=== PATIENT | male | born 1995 | race Caucasian/White ===

== ENCOUNTER 2018-03-26 12:36 | Emergency (ER) | payer OTHER ==
[2018-03-26 12:42] VITALS: RESP 18
--- NOTE | 2018-03-26 13:31 | XR ---
EXAMINATION TYPE: XR knee complete LT DATE OF EXAM: 03/26/2018 COMPARISON: NONE HISTORY: Pain TECHNIQUE: 3 views are submitted. FINDINGS: There is a intra-articular tibial plateau fracture extending in the proximal diaphysis of the tibia p osteriorly. There is displacement. There is a large suprapatellar bursal fluid collection. Remaining osseous structures intact. IMPRESSION: 1. Comminuted intra-articular tibial plateau fracture greater laterally with extension into the proxi mal diaphysis.
--- NOTE | 2018-03-26 14:23 | ED ---
General Adult HPI - General Chief complaint: Fall Stated complaint: [facility] Fell off ladder Time Seen by Provider: 03/26/18 12:52 Source: patient, RN notes reviewed Mode of arrival: ambulatory Limitations: no limitations - History of Present Illness Initial comments: 23-year-old male presents to the emergency department for a chief complaint of left knee pain 2 hours. Patient states he was about 9 feet up on a ladder when he fell off and landed on his feet. Patient denies any pain in the heels or feet. Patient denies any pain in the back or neck. Patient did not hit his head. Patient did not lose consciousness or injure any other part of his body. Patient denies any other complaints at this time including shortness of breath , chest pain, headache, visual change, abdominal pain, nausea or vomiting. - Related Data Home Medications Medication Instructions Recorded Confirmed Ibuprofen [Motrin Ib] 800 mg PO ONCE PRN 03/26/18 03/26/18 Previous Rx's Medication Instructions Recorded Acetaminophen-Codeine 300-30mg 1 tab PO Q8H PRN #9 tablet 03/26/18 [Tylenol #3] Allergies Allergy/AdvReac Type Severity Reaction Status Date / Time morphine Allergy Unknown Verified 03/26/18 13:12 Review of Systems ROS Statement: Those systems with pertinent positive or pertinent negative responses have been documented in the HPI. ROS Other: All systems not noted in ROS Statement are negative. Past Medical History Past Medical History: No Reported History History of Any Multi-Drug Resistant Organisms: None Reported Additional Past Surgical History / Comment(s): BILATERAL ANKLE SURGERY Past Psychological History: No Psychological Hx Reported Smoking Status: Never smoker Past Alcohol Use History: Occasional Past Drug Use History: None Reported General Exam Limitations: no limitations General appearance: alert, in no apparent distress Head exam: Present: atraumatic, normocephalic, normal inspection Eye exam: Present: normal appearance, PERRL, EOMI. Absent: scleral icterus, conjunctival injection, periorbital swelling ENT exam: Present: normal oropharynx, mucous membranes moist, normal external ear exam Neck exam: Present: normal inspection, full ROM (Patient is able to fully flex extend rotate and laterally bend his neck bilaterally). Absent: tenderness (no tenderness in the neck or C-spine), meningismus, lymphadenopathy Respiratory exam: Present: normal lung sounds bilaterally. Absent: respiratory distress, wheezes, rales, rhonchi, stridor Cardiovascular Exam: Present: regular rate, normal rhythm, normal heart sounds. Absent: systolic murmur, diastolic murmur, rubs, gallop, clicks Extremities exam: Present: tenderness (Patient has tenderness of the lateral left knee. No tenderness in the ankle, foot, heel, tib-fib, or femur of the left leg.), normal capillary refill (Refill less than 2 seconds in the left lower extremity. Pedal pulse 2+ in the left and right lower extremities.), joint swelling (Very mild swelling noted along the lateral side of the left knee.), other (Patient has full sensation in the left lower extremity and toes. Patient has full range of motion of the toes.). Absent: full ROM (Patient has very limited flexion of the left knee. Patient has full extension of the left knee.), calf tenderness Back exam: Present: normal inspection, full ROM (Patient is able to fully flex extend and twist and laterally bend his lower back.). Absent: tenderness, paraspinal tenderness (No paraspinal tenderness all the way down the back.), vertebral tenderness (No vertebral tenderness from C-spine through lumbar spine) Course Vital Signs 03/26/18 03/26/18 12:38 14:26 Temperature 100.0 F H 99.2 F Pulse Rate 134 H 97 Respiratory 18 18 Rate Blood Pressure 148/77 152/81 O2 Sat by Pulse 100 94 L Oximetry Medical Decision Making - Medical Decision Making 23-year-old male presents to the emergency department for a chief complaint of left knee pain 2 hours. Patient fell off a 9 foot ladder onto his feet. Patient was wearing strongest dirty work boots and denies any pain in his feet or heels. No pain to palpation in the feet or heels. Patient denies any pain in the back. He has full range of motion and no tenderness. Neurovascular intact in bilateral lower extremities. X-ray of the back was not obtained because patient showed no signs of tenderness and had full range of motion. No pain in the back whatsoever. X-ray of the left knee was obtained and showed Comminuted intra-articular tibial plateau fracture greater laterally with extension into the proximal diaphysis. Patient was put in a knee immobilizer. He was ordered crutches and told to be nonweightbearing. Patient was given a three-day supply of Tylenol [address] educated [address] to drive or work machinery while using it. He will follow up with Dr. Garner. Family called Dr. Garner while in the emergency department. He will return to the emergency Department if he has any worsening symptoms or other concerns. Disposition Clinical Impression: Tibial plateau fracture, left Disposition: HOME SELF-CARE Condition: Good Instructions: Leg Fracture (ED) Additional Instructions: Please take Tylenol 3 for pain relief. Please follow-up with orthopedics in one to 2 days. Use crutches and remain nonweightbearing. Please return to the emergency department if you have any worsening symptoms. Prescriptions: Acetaminophen-Codeine 300-30mg [Tylenol #3] 1 tab PO Q8H PRN #9 tablet PRN Reason: Pain Is patient prescribed a controlled substance at d/c from ED?: No Referrals: None,Stated [Primary Care Provider] - 1-2 days Humberto Garner MD [STAFF PHYSICIAN] - 1-2 days Time of Disposition: 14:21
[2018-03-26 14:27] VITALS: BP 152/81; PULSE 97; TEMP 99.2
--- NOTE | 2018-03-26 14:30 | CT ---
EXAMINATION TYPE: CT knee LT wo con DATE OF EXAM: 03/26/2018 COMPARISON: X-ray 03/26/2018 HISTORY: Left knee pain post 10 foot fall from ladder CT DLP: 364 mGycm Automated exposure control for dose reduction was used. FINDINGS: There is a comminuted tibial plateau fracture involving both the medial and lateral tibial plateau ex tending into the intercondylar notch. There is displacement of the fracture line and extension in the proximal diaphysis of the tibia. Suspect 2 mm depression involving the lateral tibial plateau. Small bony fragment extending from the tibial plateau into the anterior margin of the joint space. The visualized fibula and femur appear intact. There is a lipohemarthrosis within the suprapatellar b ursa. Patella grossly intact. Adjacent soft tissue edema noted. IMPRESSION: COMMINUTED INTRA-ARTICULAR FRACTURE DISPLACEMENT INVOLVING THE MEDIAL AND LATERAL TIBIAL PLATEAU WITH EXTENSION INTO THE PROXIMAL DIAPHYSIS OF THE TIBIA.
== END 2018-03-26 14:43 | disposition home or self-care (01) ==
LOC: EC 12:36
DX: S82.142A Displaced bicondylar fracture of left tibia, initial encounter for closed fracture (principal); M25.462 Effusion, left knee; Z88.5 Allergy status to narcotic agent; W11.XXXA Fall on and from ladder, initial encounter; Y92.89 Other specified places as the place of occurrence of the external cause; Y99.0 Civilian activity done for income or pay
CPT/HCPCS: 73562; 73700; 99284; L1830